=== PATIENT | male | born 1970 | race Caucasian/White ===

== ENCOUNTER 2017-05-12 04:26 | Emergency (ER) | payer OTHER ==
[~2017-05-12] VITALS: Ht 180.3 cm; Wt 113.6 kg
[~2017-05-12 04:26] MED LIST: ATOM40 PO; BUPR150SR PO; QUET300T2 PO; TRAZ-144 PO; VIST50 PO
[2017-05-12] MEDS ORDERED: ACETAMINOPHEN 325 MG TABLET PO ONE (04:45)
[2017-05-12] MEDS ORDERED: CLINDAMYCIN HCL 150 MG CAPSULE PO ONE (04:45)
[2017-05-12 06:31] VITALS: BP 112/67
== END 2017-05-12 06:34 | disposition home or self-care (01) ==
LOC: EMS 04:28
DX: L97.919 Non-pressure chronic ulcer of unspecified part of right lower leg with unspecified severity (principal); L03.115 Cellulitis of right lower limb; G43.909 Migraine, unspecified, not intractable, without status migrainosus; F20.9 Schizophrenia, unspecified; F32.9 Major depressive disorder, single episode, unspecified; F17.210 Nicotine dependence, cigarettes, uncomplicated; Z88.2 Allergy status to sulfonamides; Z79.899 Other long term (current) drug therapy
CPT/HCPCS: 99283

== ENCOUNTER 2019-03-05 12:37 | Emergency (ER) | payer MEDICAID, OTHER ==
[~2019-03-05] VITALS: Ht 177.8 cm; Wt 99.3 kg
[~2019-03-05 12:37] MED LIST changes: -ATOM40 PO; +ATOM40CA9 PO; +HYDR50CA9 PO; -TRAZ-144 PO; +TRAZ-252 PO; -VIST50 PO
[2019-03-05] MEDS ORDERED: KETOROLAC TROMETHAMINE 30 MG/ML VIAL IVP ONE (14:15)
[2019-03-05] MEDS ORDERED: SODIUM CHLORIDE 0.9% 1,000 ML IV ONE (14:15)
[2019-03-05] MEDS ORDERED: POVIDONE-IODINE 10% 15 ML SOLUTION UD TP ONE (14:15)
[2019-03-05] MEDS ORDERED: LIDOCAINE 1% 10 ML VIAL INJ ONE (14:15)
[2019-03-05] MEDS ORDERED: ONDANSETRON HCL 4 MG/2 ML VIAL IVP ONE (14:15)
[2019-03-05] MEDS ORDERED: MORPHINE SULFATE 4 MG/ML SYRINGE IVP ONE (14:30)
[2019-03-05 15:10] LABS: BASOPHILS % (AUTO) 0.4 % (0.0-2.0); HEMATOCRIT 45.4 % (41-53); HEMOGLOBIN 15.1 g/dL (13.5-17.5); LYMPHOCYTES % (AUTO) 18.8 % (22.0-44.0); MEAN CORPUSCULAR HEMOGLOBIN 28.5 pg (26.0-34.0); MEAN CORPUSCULAR HGB CONC 33.2 G/dL (31.0-37.0); MEAN CORPUSCULAR VOLUME 86 fL (80-100); MONOCYTES # (AUTO) 0.8 K/uL (0.1-1.0); MONOCYTES % (AUTO) 7.2 % (2.0-9.0); NEUTROPHILS # (AUTO) 7.7 K/uL (1.8-7.7); NEUTROPHILS % (AUTO) 72.6 % (40.0-70.0); PLATELET COUNT (AUTO) 295 K/uL (150-450); RED CELL DISTRIBUTION WIDTH 17.1 % (11.5-14.5)
[2019-03-05 15:19] LABS: ANION GAP 5 mmol/L (8-16); CALCIUM, TOTAL 8.8 mg/dL (8.8-10.5); CARBON DIOXIDE 30 mmol/L (22-29); CHLORIDE 99 mmol/L (98-107); CREATININE 0.78 mg/dL (0.60-1.30); GLOMERULAR FILTR. RATE CALC > 60 mL/min (>60); GLUCOSE,RANDOM 115 mg/dL (70-110); POTASSIUM 4.1 mmol/L (3.5-5.1); SODIUM SERUM 134 mmol/L (136-145); UREA NITROGEN, BLOOD 8 mg/dL (7-18)
[2019-03-05 15:25] LABS: ALANINE AMINOTRANSFERASE 33 U/L (12-78); ALBUMIN 3.3 g/dL (3.4-5.0); ALKALINE PHOSPHATASE 169 U/L (46-116); ASPARTATE AMINOTRANSFERASE 27 U/L (15-37); BILIRUBIN,TOTAL 0.4 mg/dL (0.1-1.0); LIPASE 49 U/L (73-393); TOTAL PROTEIN, SERUM 7.7 g/dL (6.4-8.2)
[2019-03-05] MEDS ORDERED: CefTRIAXone 1 GM/DEXTROSE 50 ML IV ONE (16:15)
[2019-03-05 16:30] VITALS: BP 136/65
== END 2019-03-05 17:49 | disposition home or self-care (01) ==
LOC: EMS 12:42
DX: L02.414 Cutaneous abscess of left upper limb (principal); R11.2 Nausea with vomiting, unspecified; R19.7 Diarrhea, unspecified; G43.909 Migraine, unspecified, not intractable, without status migrainosus; F32.9 Major depressive disorder, single episode, unspecified; F20.9 Schizophrenia, unspecified; F17.210 Nicotine dependence, cigarettes, uncomplicated; F11.90 Opioid use, unspecified, uncomplicated; F15.90 Other stimulant use, unspecified, uncomplicated; Z98.890 Other specified postprocedural states; Z79.899 Other long term (current) drug therapy; Z88.2 Allergy status to sulfonamides
CPT/HCPCS: 10060; 36415; 80053; 83690; 85025; 96361; 96365; 96375; 99283; J0696; J1885; J2270; J2405; J3490; J7030

== ENCOUNTER 2019-03-19 11:25 | Emergency (ER) | payer MEDICAID ==
[~2019-03-19] VITALS: Ht 177.8 cm; Wt 100.0 kg
[2019-03-19] MEDS ORDERED: METH10 PO (11:47)
[2019-03-19] MEDS ORDERED: OLAN10TA3 PO (11:47)
[2019-03-19] MEDS ORDERED: CEPHALEXIN MONOHYDRATE 500 MG CAPSULE PO ONE (12:15)
[2019-03-19] MEDS ORDERED: ACETAMINOPHEN 325 MG TABLET PO ONE (12:30)
[2019-03-19] MEDS ORDERED: IBUPROFEN 600 MG TABLET PO ONE (12:30)
[2019-03-19] MEDS ORDERED: LIDOCAINE 1%/EPI 1:200,000/PF 30 ML VIAL INJ ONE (12:30)
[2019-03-19 14:45] VITALS: BP 128/77
== END 2019-03-19 14:52 | disposition home or self-care (01) ==
LOC: EMS 11:29
DX: L02.414 Cutaneous abscess of left upper limb (principal); L03.114 Cellulitis of left upper limb; G43.909 Migraine, unspecified, not intractable, without status migrainosus; F32.9 Major depressive disorder, single episode, unspecified; F20.9 Schizophrenia, unspecified; F17.210 Nicotine dependence, cigarettes, uncomplicated; Z79.899 Other long term (current) drug therapy; Z98.890 Other specified postprocedural states; Z88.2 Allergy status to sulfonamides
CPT/HCPCS: 10060; 99284; J3490

== ENCOUNTER 2019-05-01 17:16 | Emergency (ER) | payer MEDICAID ==
[~2019-05-01] VITALS: Ht 177.8 cm; Wt 106.4 kg
[~2019-05-01 17:16] MED LIST changes: -ATOM40CA9 PO; -HYDR50CA9 PO; +METH10 PO; +OLAN10TA3 PO; -QUET300T2 PO; -TRAZ-252 PO
[2019-05-01] MEDS ORDERED: IPRATROPIUM BROMIDE 0.5 MG/2.5 ML NEB SOLUTION NEB ONE (17:45)
[2019-05-01] MEDS ORDERED: ALBUTEROL SULFATE 2.5 MG/0.5 ML NEB SOLUTION NEB ONE (17:45)
[2019-05-01 18:17] LABS: BASOPHILS % (AUTO) 0.8 % (0.0-2.0); EOSINOPHILS % (AUTO) 3.4 % (1.0-6.0); HEMATOCRIT 39.6 % (41-53); HEMOGLOBIN 13.1 g/dL (13.5-17.5); LYMPHOCYTES % (AUTO) 18.4 % (22.0-44.0); MEAN CORPUSCULAR HEMOGLOBIN 28.4 pg (26.0-34.0); MEAN CORPUSCULAR HGB CONC 33.2 G/dL (31.0-37.0); MEAN CORPUSCULAR VOLUME 86 fL (80-100); MONOCYTES # (AUTO) 0.7 K/uL (0.1-1.0); MONOCYTES % (AUTO) 6.7 % (2.0-9.0); NEUTROPHILS # (AUTO) 7.7 K/uL (1.8-7.7); NEUTROPHILS % (AUTO) 70.7 % (40.0-70.0); PLATELET COUNT (AUTO) 495 K/uL (150-450); RED BLOOD CELL COUNT(AUTO) 4.62 MIL/uL (4.50-5.90); RED CELL DISTRIBUTION WIDTH 15.7 % (11.5-14.5)
[2019-05-01 18:30] LABS: ANION GAP 5 mmol/L (8-16); CARBON DIOXIDE 31 mmol/L (22-29); CHLORIDE 99 mmol/L (98-107); CREATININE 0.72 mg/dL (0.60-1.30); GLOMERULAR FILTR. RATE CALC > 60 mL/min (>60); GLUCOSE,RANDOM 140 mg/dL (70-110); POTASSIUM 3.6 mmol/L (3.5-5.1); SODIUM SERUM 135 mmol/L (136-145); UREA NITROGEN, BLOOD 11 mg/dL (7-18)
[2019-05-01 18:36] LABS: ALANINE AMINOTRANSFERASE 27 U/L (12-78); ALBUMIN 2.9 g/dL (3.4-5.0); ALKALINE PHOSPHATASE 178 U/L (46-116); ASPARTATE AMINOTRANSFERASE 25 U/L (15-37); BILIRUBIN,TOTAL 0.2 mg/dL (0.1-1.0); TOTAL PROTEIN, SERUM 7.9 g/dL (6.4-8.2)
[2019-05-01 18:45] LABS: B-TYPE NATRIURETIC PEPTIDE 11 pg/mL (0-100)
[2019-05-01 19:35] LABS: INFLUENZA TYPE A NEGATIVE FOR TYPE A (NEGATIVE); INFLUENZA TYPE B NEGATIVE FOR TYPE B (NEGATIVE)
[2019-05-01] MEDS ORDERED: ALBUTEROL SULFATE HFA 90 MCG/PUFF 8 GM INHALER IH ONE (20:00)
[2019-05-01] MEDS ORDERED: DOXYCYCLINE HYCLATE 100 MG CAPSULE PO ONE (20:00)
[2019-05-01 20:05] VITALS: BP 149/74
== END 2019-05-01 21:17 | disposition home or self-care (01) ==
LOC: EMS 17:17
DX: J44.1 Chronic obstructive pulmonary disease with (acute) exacerbation (principal); J45.901 Unspecified asthma with (acute) exacerbation; L02.31 Cutaneous abscess of buttock; F19.10 Other psychoactive substance abuse, uncomplicated; F17.210 Nicotine dependence, cigarettes, uncomplicated; F32.9 Major depressive disorder, single episode, unspecified; G43.909 Migraine, unspecified, not intractable, without status migrainosus; F20.9 Schizophrenia, unspecified; F11.90 Opioid use, unspecified, uncomplicated; Z88.1 Allergy status to other antibiotic agents
CPT/HCPCS: 87804; 93005; 94640; 99406; J3535

== ENCOUNTER 2019-05-13 20:05 | Inpatient (IN) | payer MEDICAID ==
[~2019-05-13] VITALS: Ht 180.3 cm; Wt 100.0 kg
[2019-05-13 21:57] LABS: BASOPHILS % (AUTO) 0.5 % (0.0-2.0); HEMATOCRIT 38.7 % (41-53); HEMOGLOBIN 12.8 g/dL (13.5-17.5); LYMPHOCYTES # (AUTO) 1.7 K/uL (1.0-4.8); LYMPHOCYTES % (AUTO) 9.7 % (22.0-44.0); MEAN CORPUSCULAR HEMOGLOBIN 27.9 pg (26.0-34.0); MEAN CORPUSCULAR VOLUME 85 fL (80-100); MONOCYTES # (AUTO) 1.1 K/uL (0.1-1.0); MONOCYTES % (AUTO) 6.4 % (2.0-9.0); NEUTROPHILS # (AUTO) 14.3 K/uL (1.8-7.7); NEUTROPHILS % (AUTO) 82.4 % (40.0-70.0); PLATELET COUNT (AUTO) 524 K/uL (150-450); RED BLOOD CELL COUNT(AUTO) 4.58 MIL/uL (4.50-5.90); RED CELL DISTRIBUTION WIDTH 15.7 % (11.5-14.5)
[2019-05-13 22:08] LABS: ANION GAP 6 mmol/L (8-16); CALCIUM, TOTAL 8.8 mg/dL (8.8-10.5); CARBON DIOXIDE 31 mmol/L (22-29); CHLORIDE 97 mmol/L (98-107); CREATININE 0.58 mg/dL (0.60-1.30); GLOMERULAR FILTR. RATE CALC > 60 mL/min (>60); GLUCOSE,RANDOM 127 mg/dL (70-110); POTASSIUM 3.8 mmol/L (3.5-5.1); SODIUM SERUM 134 mmol/L (136-145); UREA NITROGEN, BLOOD 8 mg/dL (7-18)
[2019-05-13 22:13] LABS: ALANINE AMINOTRANSFERASE 26 U/L (12-78); ALBUMIN 2.8 g/dL (3.4-5.0); ALKALINE PHOSPHATASE 187 U/L (46-116); ASPARTATE AMINOTRANSFERASE 24 U/L (15-37); BILIRUBIN,TOTAL 0.5 mg/dL (0.1-1.0); LIPASE 29 U/L (73-393); TOTAL PROTEIN, SERUM 7.9 g/dL (6.4-8.2)
[2019-05-14] MEDS ORDERED: PIPERACILLIN/TAZO 3.375 GM/D5W 50 ML IV ONE (03:45)
[2019-05-14] MEDS ORDERED: IOVERSOL 350 MG/ML 100 ML VIAL ONE (04:25)
[2019-05-14] MEDS ORDERED: SODIUM CHLORIDE 0.9% 100 ML ONE (04:25)
[2019-05-14] MEDS ORDERED: VANCOMYCIN HCL 1.5 GM in DEXTROSE 5%-WATER 250 ML IV ONE ×2 (04:30→09:15)
[2019-05-14 06:20] LABS: APPEARANCE,URINE CLEAR (CLEAR); BILIRUBIN,URINE NEGATIVE (NEGATIVE); GLUCOSE, URINE (UA) NEGATIVE (NEGATIVE); KETONES,URINE NEGATIVE (NEGATIVE); LEUKOCYTE ESTERASE ,URINE NEGATIVE (NEGATIVE); NITRATE,URINE NEGATIVE (NEGATIVE); OCCULT BLOOD,URINE NEGATIVE (NEGATIVE); PROTEIN,URINE TRACE (NEGATIVE)
[2019-05-14 06:29] LABS: AMPHET/METH SCREEN,URINE POSITIVE (NEGATIVE); BARBITURATE SCREEN, URINE NEGATIVE (NEGATIVE); BENZODIAZEPINES SCREEN,URINE NEGATIVE (NEGATIVE); CANNABINOID SCREEN,URINE NEGATIVE (NEGATIVE); COCAINE SCREEN,URINE NEGATIVE (NEGATIVE); METHADONE SCREEN, URINE POSITIVE (NEGATIVE); OPIATE SCREEN,URINE POSITIVE (NEGATIVE)
[2019-05-14 06:30] LABS: BACTERIA,URINE Few /HPF (None Seen); RBC,URINE 0-2 /HPF (0-2); SQUAMOUS EPITHELIAL CELL,UR Few /LPF (None Seen)
[2019-05-14 06:33] LABS: PHENCYCLIDINE SCREEN,URINE NEGATIVE (NEGATIVE)
[2019-05-14] MEDS ORDERED: MORPHINE SULFATE 4 MG/ML SYRINGE IVP ONE (07:15)
[2019-05-14] MEDS ORDERED: ONDANSETRON HCL 4 MG/2 ML VIAL IVP PRN (09:00)
[2019-05-14] MEDS ORDERED: SODIUM CHLORIDE 0.9% 1,000 ML IV ONE (09:00)
[2019-05-14] MEDS ORDERED: ACETAMINOPHEN 325 MG TABLET PO PRN (09:00)
[2019-05-14] MEDS ORDERED: MAGNESIUM HYDROXIDE SUSPENSION 30 ML UDCUP PO PRN (09:00)
[2019-05-14 09:41] VITALS: BP 128/60
[2019-05-14] MEDS: FAMOTIDINE 20 MG TABLET PO SCH (10:02)
[2019-05-14] MEDS: PIPERACILLIN/TAZO 3.375 GM/D5W 50 ML IV SCH ×3 (11:03→21:45)
[2019-05-14] MEDS ORDERED: SUCCINYLCHOLINE CHLORIDE 20 MG/ML 10 ML VIAL IVP ONE (12:00)
[2019-05-14] MEDS ORDERED: PROPOFOL 1% 20 ML VIAL IVP ONE (12:00)
[2019-05-14] MEDS ORDERED: MIDAZOLAM HCL 2 MG/2 ML VIAL IVP ONE (12:00)
[2019-05-14] MEDS ORDERED: FentaNYL CITRATE-PF 100 MCG/2 ML VIAL IVP ONE (12:00)
[2019-05-14] MEDS ORDERED: ONDANSETRON HCL 4 MG/2 ML VIAL IVP ONE (12:00)
[2019-05-14] MEDS: VANCOMYCIN HCL 1.5 GM in DEXTROSE 5%-WATER 250 ML IV SCH ×2 (14:00→20:13)
[2019-05-14] MEDS ORDERED: FentaNYL CITRATE-PF 100 MCG/2 ML VIAL IVP PRN (14:00)
[2019-05-14] MEDS ORDERED: MEPERIDINE-PF 25 MG/ML VIAL IVP PRN (14:00)
[2019-05-14] MEDS ORDERED: BUPIVACAINE HCL/PF 0.5% 30 ML VIAL ONE (14:50)
[2019-05-14] MEDS ORDERED: LIDOCAINE 2%/EPI 1:200,000/PF 20 ML VIAL ONE (14:50)
[2019-05-14] MEDS ORDERED: RINGERS SOLUTION,LACTATED 1,000 ML IV ONE (14:56)
[2019-05-14] MEDS: HEPARIN SODIUM,PORCINE 5,000 UNITS/ML VIAL SQ SCH ×2 (16:00→23:58)
[2019-05-14] MEDS ORDERED: HYDROmorphone 2 MG/ML SYRINGE ONE (16:06)
[2019-05-14] MEDS: HYDROmorphone 2 MG/ML SYRINGE IVP PRN ×3 (16:09→16:46)
[2019-05-14] MEDS: MORPHINE SULFATE 2 MG/ML SYRINGE IVP PRN (17:17)
[2019-05-14 20:10] VITALS: BP 141/67
[2019-05-14] MEDS: OxyCODONE HCL/ACETAMINOPHEN 5-325 MG TABLET PO PRN (20:12)
[2019-05-14] MEDS: OXYGEN THERAPY IH SCH (20:13)
[2019-05-14] MEDS ORDERED: MORPHINE SULFATE 2 MG/ML SYRINGE IVP ONE (22:30)
[2019-05-15] VITALS (8 sets, daily range): BP systolic 97–148; BP diastolic 50–88
[2019-05-15] MEDS: MORPHINE SULFATE 2 MG/ML SYRINGE IVP PRN ×5 (00:03→23:04)
[2019-05-15] MEDS: PIPERACILLIN/TAZO 3.375 GM/D5W 50 ML IV SCH ×4 (03:11→22:08)
[2019-05-15] MEDS: VANCOMYCIN HCL 1.5 GM in DEXTROSE 5%-WATER 250 ML IV SCH ×3 (05:02→23:05)
[2019-05-15] MEDS: OxyCODONE HCL/ACETAMINOPHEN 5-325 MG TABLET PO PRN ×2 (05:17→14:50)
[2019-05-15] MEDS: OXYGEN THERAPY IH SCH ×2 (08:00→20:00)
[2019-05-15] MEDS: FAMOTIDINE 20 MG TABLET PO SCH (08:45)
[2019-05-15] MEDS: HEPARIN SODIUM,PORCINE 5,000 UNITS/ML VIAL SQ SCH ×3 (08:45→23:31)
[2019-05-15] MEDS: METHADONE HCL 10 MG TABLET PO SCH (10:09)
[2019-05-15] MEDS ORDERED: SODIUM CHLORIDE 0.9% 250 ML IV ONE (10:13)
[2019-05-15 11:41] LABS: BASOPHILS % (AUTO) 0.3 % (0.0-2.0); EOSINOPHILS % (AUTO) 0.7 % (1.0-6.0); HEMATOCRIT 36.7 % (41-53); HEMOGLOBIN 11.9 g/dL (13.5-17.5); LYMPHOCYTES # (AUTO) 1.9 K/uL (1.0-4.8); LYMPHOCYTES % (AUTO) 14.5 % (22.0-44.0); MEAN CORPUSCULAR HEMOGLOBIN 27.5 pg (26.0-34.0); MEAN CORPUSCULAR HGB CONC 32.5 G/dL (31.0-37.0); MEAN CORPUSCULAR VOLUME 85 fL (80-100); MONOCYTES % (AUTO) 7.5 % (2.0-9.0); NEUTROPHILS # (AUTO) 10.3 K/uL (1.8-7.7); PLATELET COUNT (AUTO) 415 K/uL (150-450); RED BLOOD CELL COUNT(AUTO) 4.33 MIL/uL (4.50-5.90); RED CELL DISTRIBUTION WIDTH 15.6 % (11.5-14.5)
[2019-05-15 12:08] LABS: ANION GAP 3 mmol/L (8-16); CALCIUM, TOTAL 8.3 mg/dL (8.8-10.5); CARBON DIOXIDE 32 mmol/L (22-29); CHLORIDE 101 mmol/L (98-107); CREATININE 0.69 mg/dL (0.60-1.30); GLOMERULAR FILTR. RATE CALC > 60 mL/min (>60); GLUCOSE,RANDOM 106 mg/dL (70-110); POTASSIUM 4.1 mmol/L (3.5-5.1); SODIUM SERUM 136 mmol/L (136-145); UREA NITROGEN, BLOOD 8 mg/dL (7-18); VANCOMYCIN,RANDOM 15.8 mcg/mL (25.0-50.0)
[2019-05-15] MEDS ORDERED: SODIUM CHLORIDE 0.9% IRRIG BTL 1,000 ML IRRIG ONE (14:30)
[2019-05-16] MEDS: OxyCODONE HCL/ACETAMINOPHEN 5-325 MG TABLET PO PRN ×4 (01:32→20:19)
[2019-05-16] MEDS: PIPERACILLIN/TAZO 3.375 GM/D5W 50 ML IV SCH ×4 (03:59→22:24)
[2019-05-16 05:17] VITALS: BP 106/51
[2019-05-16] MEDS: VANCOMYCIN HCL 1.5 GM in DEXTROSE 5%-WATER 250 ML IV SCH ×3 (06:54→22:25)
[2019-05-16 07:37] VITALS: BP 123/58
[2019-05-16] MEDS: HEPARIN SODIUM,PORCINE 5,000 UNITS/ML VIAL SQ SCH ×3 (08:48→22:25)
[2019-05-16] MEDS: OXYGEN THERAPY IH SCH (08:48)
[2019-05-16] MEDS: FAMOTIDINE 20 MG TABLET PO SCH (08:48)
[2019-05-16] MEDS: METHADONE HCL 10 MG TABLET PO SCH (08:49)
[2019-05-16 12:15] VITALS: BP 111/55
[2019-05-16] MEDS: MORPHINE SULFATE 2 MG/ML SYRINGE IVP PRN ×2 (12:34→22:03)
[2019-05-16] MEDS: MULTIVITAMINS WITH MINERALS, THERAPEUTIC TABLET PO SCH (12:34)
[2019-05-16] MEDS ORDERED: SODIUM CHLORIDE 0.9% IRRIG BTL 1,000 ML IRRIG ONE (15:38)
[2019-05-16 20:00] VITALS: BP 107/61
[2019-05-16 23:13] VITALS: BP 113/67
[2019-05-17 04:20] VITALS: BP 122/74
[2019-05-17] MEDS: PIPERACILLIN/TAZO 3.375 GM/D5W 50 ML IV SCH ×4 (04:41→21:06)
[2019-05-17 06:17] LABS: ANION GAP 5 mmol/L (8-16); CARBON DIOXIDE 31 mmol/L (22-29); CHLORIDE 99 mmol/L (98-107); CREATININE 0.59 mg/dL (0.60-1.30); GLUCOSE,RANDOM 88 mg/dL (70-110); POTASSIUM 4.4 mmol/L (3.5-5.1); SODIUM SERUM 135 mmol/L (136-145); UREA NITROGEN, BLOOD 11 mg/dL (7-18)
[2019-05-17 06:18] LABS: CALCIUM, TOTAL 8.7 mg/dL (8.8-10.5); GLOMERULAR FILTR. RATE CALC > 60 mL/min (>60)
[2019-05-17] MEDS: VANCOMYCIN HCL 1.5 GM in DEXTROSE 5%-WATER 250 ML IV SCH ×3 (06:36→23:21)
[2019-05-17 07:54] VITALS: BP 107/63
[2019-05-17] MEDS: METHADONE HCL 10 MG TABLET PO SCH (07:59)
[2019-05-17] MEDS: FAMOTIDINE 20 MG TABLET PO SCH (07:59)
[2019-05-17] MEDS: HEPARIN SODIUM,PORCINE 5,000 UNITS/ML VIAL SQ SCH ×3 (07:59→23:22)
[2019-05-17] MEDS: MORPHINE SULFATE 2 MG/ML SYRINGE IVP PRN ×3 (08:00→23:22)
[2019-05-17] MEDS: MULTIVITAMINS WITH MINERALS, THERAPEUTIC TABLET PO SCH (08:02)
[2019-05-17] MEDS: OxyCODONE HCL/ACETAMINOPHEN 5-325 MG TABLET PO PRN ×2 (11:16→19:48)
[2019-05-17 11:33] VITALS: BP 116/66
[2019-05-17 15:38] VITALS: BP 118/72
[2019-05-17] MEDS ORDERED: SODIUM CL IRRIG SOLN BOTTLE 250 ML IRRIG ONE (16:24)
[2019-05-17 19:43] VITALS: BP 125/75
[2019-05-17] MEDS: OXYGEN THERAPY IH SCH (20:00)
[2019-05-17] MEDS ORDERED: SODIUM CHLORIDE 0.9% 500 ML IV ONE (21:04)
[2019-05-17 23:47] VITALS: BP 123/77
[2019-05-18] MEDS: OxyCODONE HCL/ACETAMINOPHEN 5-325 MG TABLET PO PRN ×4 (01:46→22:21)
[2019-05-18] MEDS: PIPERACILLIN/TAZO 3.375 GM/D5W 50 ML IV SCH ×4 (04:42→22:15)
[2019-05-18 05:20] VITALS: BP 119/75
[2019-05-18] MEDS: VANCOMYCIN HCL 1.5 GM in DEXTROSE 5%-WATER 250 ML IV SCH ×3 (06:01→23:35)
[2019-05-18 06:37] LABS: HEMATOCRIT 40.4 % (41-53); HEMOGLOBIN 13.3 g/dL (13.5-17.5); MEAN CORPUSCULAR HGB CONC 32.9 G/dL (31.0-37.0); MEAN CORPUSCULAR VOLUME 85 fL (80-100); PLATELET COUNT (AUTO) 494 K/uL (150-450); RED BLOOD CELL COUNT(AUTO) 4.76 MIL/uL (4.50-5.90); RED CELL DISTRIBUTION WIDTH 15.8 % (11.5-14.5)
[2019-05-18 07:19] LABS: ANION GAP 10 mmol/L (8-16); CALCIUM, TOTAL 8.7 mg/dL (8.8-10.5); CARBON DIOXIDE 27 mmol/L (22-29); CHLORIDE 100 mmol/L (98-107); CREATININE 0.76 mg/dL (0.60-1.30); GLOMERULAR FILTR. RATE CALC > 60 mL/min (>60); GLUCOSE,RANDOM 100 mg/dL (70-110); POTASSIUM 4.3 mmol/L (3.5-5.1); SODIUM SERUM 137 mmol/L (136-145); UREA NITROGEN, BLOOD 9 mg/dL (7-18); VANCOMYCIN,RANDOM 24.4 mcg/mL (25.0-50.0)
[2019-05-18] MEDS: MORPHINE SULFATE 2 MG/ML SYRINGE IVP PRN ×4 (07:53→23:40)
[2019-05-18] MEDS: FAMOTIDINE 20 MG TABLET PO SCH (07:54)
[2019-05-18] MEDS: METHADONE HCL 10 MG TABLET PO SCH (07:54)
[2019-05-18] MEDS: MULTIVITAMINS WITH MINERALS, THERAPEUTIC TABLET PO SCH (07:55)
[2019-05-18] MEDS: HEPARIN SODIUM,PORCINE 5,000 UNITS/ML VIAL SQ SCH ×3 (07:55→23:36)
[2019-05-18 08:43] VITALS: BP 123/79
[2019-05-18 08:52] LABS: BAND NEUTROPHILS % (MANUAL) 5 % (0-5); LYMPHOCYTES % (MANUAL) 36 % (22-44); MONOCYTES % (MANUAL) 8 % (2-9); SEGMENTED NEUTROPHILS % 51 % (40-70)
[2019-05-18 11:40] VITALS: BP 138/86
[2019-05-18 15:58] VITALS: BP 135/90
[2019-05-18 20:20] VITALS: BP 149/96
[2019-05-18 23:44] VITALS: BP 118/66
[2019-05-19] MEDS: PIPERACILLIN/TAZO 3.375 GM/D5W 50 ML IV SCH ×4 (04:01→21:50)
[2019-05-19] MEDS: MORPHINE SULFATE 2 MG/ML SYRINGE IVP PRN ×4 (04:01→23:37)
[2019-05-19 05:33] VITALS: BP 128/72
[2019-05-19] MEDS: VANCOMYCIN HCL 1.5 GM in DEXTROSE 5%-WATER 250 ML IV SCH ×3 (06:32→23:36)
[2019-05-19 07:37] VITALS: BP 117/65
[2019-05-19 07:47] LABS: ANION GAP 3 mmol/L (8-16); CARBON DIOXIDE 29 mmol/L (22-29); CHLORIDE 98 mmol/L (98-107); CREATININE 0.61 mg/dL (0.60-1.30); GLUCOSE,RANDOM 99 mg/dL (70-110); POTASSIUM 3.9 mmol/L (3.5-5.1); SODIUM SERUM 130 mmol/L (136-145); UREA NITROGEN, BLOOD 9 mg/dL (7-18)
[2019-05-19 07:48] LABS: CALCIUM, TOTAL 8.7 mg/dL (8.8-10.5); GLOMERULAR FILTR. RATE CALC > 60 mL/min (>60)
[2019-05-19] MEDS: OXYGEN THERAPY IH SCH (08:00)
[2019-05-19] MEDS: HEPARIN SODIUM,PORCINE 5,000 UNITS/ML VIAL SQ SCH ×3 (09:07→23:37)
[2019-05-19] MEDS: METHADONE HCL 10 MG TABLET PO SCH (09:07)
[2019-05-19] MEDS: FAMOTIDINE 20 MG TABLET PO SCH (09:07)
[2019-05-19] MEDS: MULTIVITAMINS WITH MINERALS, THERAPEUTIC TABLET PO SCH (09:08)
[2019-05-19 11:20] VITALS: BP 124/72
[2019-05-19 15:10] VITALS: BP 122/72
[2019-05-19 19:41] VITALS: BP 126/83
[2019-05-19] MEDS: OxyCODONE HCL/ACETAMINOPHEN 5-325 MG TABLET PO PRN (21:50)
[2019-05-19 23:32] VITALS: BP 123/79
[2019-05-20] MEDS: PIPERACILLIN/TAZO 3.375 GM/D5W 50 ML IV SCH ×3 (03:43→15:43)
[2019-05-20 04:30] VITALS: BP 133/87
[2019-05-20] MEDS: MORPHINE SULFATE 2 MG/ML SYRINGE IVP PRN ×3 (07:56→16:50)
[2019-05-20 08:17] LABS: ANION GAP 4 mmol/L (8-16); CALCIUM, TOTAL 9.1 mg/dL (8.8-10.5); CARBON DIOXIDE 29 mmol/L (22-29); CHLORIDE 101 mmol/L (98-107); CREATININE 0.89 mg/dL (0.60-1.30); GLOMERULAR FILTR. RATE CALC > 60 mL/min (>60); GLUCOSE,RANDOM 91 mg/dL (70-110); POTASSIUM 4.4 mmol/L (3.5-5.1); SODIUM SERUM 134 mmol/L (136-145); UREA NITROGEN, BLOOD 11 mg/dL (7-18); VANCOMYCIN,RANDOM 24.8 mcg/mL (25.0-50.0)
[2019-05-20] MEDS: VANCOMYCIN HCL 1.5 GM in DEXTROSE 5%-WATER 250 ML IV SCH (08:33)
[2019-05-20] MEDS: HEPARIN SODIUM,PORCINE 5,000 UNITS/ML VIAL SQ SCH ×2 (08:34→15:42)
[2019-05-20] MEDS: MULTIVITAMINS WITH MINERALS, THERAPEUTIC TABLET PO SCH (08:34)
[2019-05-20] MEDS: METHADONE HCL 10 MG TABLET PO SCH (08:34)
[2019-05-20] MEDS: FAMOTIDINE 20 MG TABLET PO SCH (08:34)
[2019-05-20 08:42] VITALS: BP 113/64
[2019-05-20 11:04] VITALS: BP 123/74
[2019-05-20] MEDS ORDERED: CIPR-278 PO (13:42)
[2019-05-20] MEDS: OxyCODONE HCL/ACETAMINOPHEN 5-325 MG TABLET PO PRN (14:22)
[2019-05-20 15:44] VITALS: BP 119/68
[2019-05-20] MEDS ORDERED: VANCOMYCIN HCL 1.5 GM in DEXTROSE 5%-WATER 250 ML IV SCH (20:00)
== END 2019-05-20 18:58 | disposition home health service (06) | DRG 383 ==
LOC: EMS 20:06 → 5N 05-14 08:46 → 4E 05-16 18:03
PROVIDERS: ADMIT Internal Medicine; ATTEND Internal Medicine
PROC: 05HY33Z Insertion of Infusion Device into Upper Vein, Percutaneous Approach (ICD-10-PCS; 2019-05-14)
PROC: B54MZZA Ultrasonography of Right Upper Extremity Veins, Guidance (ICD-10-PCS; 2019-05-14)
PROC: 0JB90ZZ Excision of Buttock Subcutaneous Tissue and Fascia, Open Approach (ICD-10-PCS; principal; 2019-05-14 14:30)
DX: L02.214 Cutaneous abscess of groin (principal); G82.20 Paraplegia, unspecified; R65.10 Systemic inflammatory response syndrome (SIRS) of non-infectious origin without acute organ dysfunction; F20.9 Schizophrenia, unspecified; L02.31 Cutaneous abscess of buttock; F19.10 Other psychoactive substance abuse, uncomplicated; F11.10 Opioid abuse, uncomplicated; E66.9 Obesity, unspecified; Z88.1 Allergy status to other antibiotic agents; F32.9 Major depressive disorder, single episode, unspecified; G43.909 Migraine, unspecified, not intractable, without status migrainosus; F17.210 Nicotine dependence, cigarettes, uncomplicated; Z96.659 Presence of unspecified artificial knee joint; K75.9 Inflammatory liver disease, unspecified; Z91.19 Patient's noncompliance with other medical treatment and regimen; Z99.3 Dependence on wheelchair; Z68.30 Body mass index [BMI] 30.0-30.9, adult
CPT/HCPCS: 36245; 36569; 74177; 76937; 87040; 87070; 87205; 88304; 93005; G0378; G0480; J0330; J0690; J1170; J1644; J2250; J2270; J2405; J2543; J2704; J3010; J3370; J3490; J7030; J7040; J7050; J7060; J7120